=== PATIENT | female | born 1955 | race Two or more races ===

== ENCOUNTER 2019-02-16 09:55 | Inpatient (IN) | payer MEDICAID ==
[~2019-02-16] VITALS: Ht 152.4 cm; Wt 81.6 kg
[2019-02-16] MEDS ORDERED: NKM (10:11)
--- NOTE | 2019-02-16 10:11 | NUR ---
ED Nurse Note: Pt came into the ER w/ complaints of left knee pain x 2 weeks. Pt denies injury. Noted ot be swollen in the area. Pt is complaining of 10/10 pain. Radiating ot the back of the knee. No redness noted. Pt takes advil to alleviate the pain. Pt unable to stand on the left leg. Pt noted to have tenderness in the area. A + O x4. Skin warm to touch.
[2019-02-16 10:13] VITALS: BP 168/62
[2019-02-16] MEDS ORDERED: Ketorolac 30mg Inj IV ONE (10:15)
--- NOTE | 2019-02-16 10:17 | Emergency Room Report ---
History of Present Illness General Chief Complaint: Pain Source: Patient, Family Member Present Illness HPI Patient presents with one week of increasing left knee and lower leg pain. She denies any trauma. She's never had this problem before. Is also some swelling in the knee. She denies any fevers or chills. She is taking Advil and it is helped somewhat. Starting yesterday the pain increased severely. It's now 10/ 10, aching and pressure. It radiates somewhat down into the calf area. She denies any swelling of the ankle. There is no chest pain, hemoptysis, palpitations or dyspnea. No dizziness or weakness. The patient denies major medical problems. Allergies: Coded Allergies: No Known Allergies (Unverified , 02/16/19) Patient History Past Medical History: see triage record Social History: Denies: smoking, alcohol use, drug use Social History Narrative with family Now: No Reviewed Nursing Documentation: PMH: Agreed; PSxH: Agreed Nursing Documentation-PMH Past Medical History: No Stated History Review of Systems All Other Systems: negative except mentioned in HPI Physical Exam Vital Signs Date Time Temp Pulse Resp B/P (MAP) Pulse Ox O2 Delivery O2 Flow Rate FiO2 02/16/19 10:05 97.2 58 18 162/62 100 Room Air Sp02 EP Interpretation: reviewed, normal General Appearance: alert, GCS 15, mild distress - with attempt to ambulate and pain in knee Head: normocephalic Eyes: bilateral eye normal inspection, bilateral eye PERRL, bilateral eye EOMI ENT: moist mucus membranes Neck: supple Respiratory: lungs clear, normal breath sounds Cardiovascular #1: no edema, bradycardia Cardiovascular #2: 2+ radial (R), 2+ dorsalis pedis (L) Gastrointestinal: normal inspection, normal bowel sounds, non tender, no mass, non-distended Genitourinary: no CVA tenderness Musculoskeletal: back normal, swelling - Left knee, tender - Left knee and posterior calf Neurologic: alert, oriented x3, grossly normal Psychiatric: anxious - With pain Skin: normal inspection, warm/dry, other - Venous disease Medical Decision Making Diagnostic Impression: Primary Impression: Bradycardia Additional Impressions: Hypertension Qualified Codes: I10 - Essential (primary) hypertension Hyperglycemia Left knee pain Qualified Codes: M25.562 - Pain in left knee ER Course Patient presents with left knee pain and calf pain. Differential includes gout , degenerative arthritis, DVT amongst others. Evaluation will be with EKG, chest x-ray, knee x-ray, venous Doppler and labs. The patient will be treated with a dose of Toradol. EKG with bradycardia rate of [address]-T wave changes. Chest x- ray with pulmonary hypertension possible early congestive heart failure. Knee with effusion and minimal degenerative joint disease. White count normal, CMP normal except for elevated glucose. Urinalysis uric acid normal. Elevated BNP. Bradycardia noted and tolerated well. Blood pressure treated with clonidine as concern of giving beta blockers or calcium channel blockers in the face of bradycardia. Blood pressure still high. Hydralazine 1 dose given. Blood pressure improved. Patient tolerating bradycardia without difficulty. Patient needs cardiac evaluation and possibly pacemaker. Thyroid function tests which was added is normal. The pain is improved with Toradol. No evidence of infective etiology in knee. Admitted telemetry Dr. Rhodes Laboratory Tests Test 02/16/19 10:20 02/16/19 11:41 White Blood Count 5.8 K/UL (4.8-10.8) Red Blood Count 3.95 M/UL (4.20-5.40) L Hemoglobin 12.3 G/DL (12.0-16.0) Hematocrit 35.9 % (37.0-47.0) L Mean Corpuscular Volume 91 FL (80-99) Mean Corpuscular Hemoglobin 31.0 PG (27.0-31.0) Mean Corpuscular Hemoglobin Concent 34.2 G/DL (32.0-36.0) Red Cell Distribution Width 11.2 % (11.6-14.8) L Platelet Count 141 K/UL (150-450) L Mean Platelet Volume 11.3 FL (6.5-10.1) H Neutrophils (%) (Auto) 69.5 % (45.0-75.0) Lymphocytes (%) (Auto) 20.0 % (20.0-45.0) Monocytes (%) (Auto) 7.7 % (1.0-10.0) Eosinophils (%) (Auto) 2.1 % (0.0-3.0) Basophils (%) (Auto) 0.7 % (0.0-2.0) Erythrocyte Sedimentation Rate 44 MM/HR (0-30) H Prothrombin Time 11.1 SEC (9.30-11.50) Prothrombin Time INR 1.1 (0.9-1.1) PTT 28 SEC (23-33) Urine Color Yellow Urine Appearance Clear Urine pH 5 (4.5-8.0) Urine Specific Rolfe 1.025 (1.005-1.035) Urine Protein 3+ (NEGATIVE) H Urine Glucose (UA) Negative (NEGATIVE) Urine Ketones Negative (NEGATIVE) Urine Blood Negative (NEGATIVE) Urine Nitrite Negative (NEGATIVE) Urine Bilirubin Negative (NEGATIVE) Urine Urobilinogen Normal MG/DL (0.0-1.0) Urine Leukocyte Esterase Negative (NEGATIVE) Urine RBC 0-2 /HPF (0 - 2) Urine WBC 0 /HPF (0 - 2) Urine Squamous Epithelial Cells Occasional /LPF Urine Bacteria None /HPF (NONE) Sodium Level 140 MMOL/L (136-145) Potassium Level 3.9 MMOL/L (3.5-5.1) Chloride Level 104 MMOL/L (98-107) Carbon Dioxide Level 28 MMOL/L (21-32) Anion Gap 8 mmol/L (5-15) Blood Urea Nitrogen 13 mg/dL (7-18) Creatinine 0.7 MG/DL (0.55-1.30) Estimate Glomerular Filtration Rate > 60 mL/min (>60) Glucose Level 224 MG/DL (74-106) H Uric Acid 4.8 MG/DL (2.6-7.2) Calcium Level 8.5 MG/DL (8.5-10.1) Total Bilirubin 0.3 MG/DL (0.2-1.0) Aspartate Amino Transferase (AST) 18 U/L (15-37) Alanine Aminotransferase (ALT) 19 U/L (12-78) Alkaline Phosphatase 83 U/L (46-116) Total Creatine Kinase 116 U/L (26-308) Troponin I 0.016 ng/mL (0.000-0.056) Pro-B-Type Natriuretic Peptide 587 pg/mL (0-125) H Total Protein 7.2 G/DL (6.4-8.2) Albumin 3.0 G/DL (3.4-5.0) L Globulin 4.2 g/dL Albumin/Globulin Ratio 0.7 (1.0-2.7) L Thyroid Stimulating Hormone (TSH) 0.859 uiU/mL (0.358-3.740) Magnesium Level 1.9 MG/DL (1.8-2.4) EKG Diagnostic Results Rate: bradycardiac ST Segments: no acute changes Rhythm Strip Diag. Results EP Interpretation: yes Rhythm: no PVC's, no ectopy - Bradycardia Chest X-Ray Diagnostic Results Chest X-Ray Diagnostic Results : Chest X-Ray Ordered: Yes # of Views/Limited/Complete: 1 View Indication: Other EP Interpretation: Yes Interpretation: no effusion, no pneumothorax, other - pulm HTN and cardiomegally Impression: Other Electronically Signed by: Electronically signed by Armando Gipson MD Other X-Ray Diagnostic Results Other X-Ray Diagnostic Results : X-Ray ordered: L knee # of Views/Limited Vs Complete: 3 View Indication: Pain Interpretation: no dislocation, no soft tissue swelling, no fractures, other - effusion - min DJD Impression: Other Electronically Signed by: Electronically signed by Armando Gipson MD CT/MRI/US Diagnostic Results CT/MRI/US Diagnostic Results : Imaging Test Ordered: venous US Impression No DVT Last Vital Signs Date Time Temp Pulse Resp B/P (MAP) Pulse Ox O2 Delivery O2 Flow Rate FiO2 02/16/19 17:40 59 140/70 02/16/19 15:27 Room Air 02/16/19 15:20 98.1 20 99 Status: improved Disposition: ADMITTED INPATIENT Condition: Serious Armando Gipson MD Feb 16, 2019 10:17
[2019-02-16 10:33] LABS: BASOPHILS % (AUTO) 0.7 % (0.0-2.0); EOSINOPHILS % (AUTO) 2.1 % (0.0-3.0); HEMATOCRIT 35.9 % (37.0-47.0); HEMOGLOBIN 12.3 G/DL (12.0-16.0); MEAN CORPUSCULAR VOLUME 91 FL (80-99); MONOCYTES % (AUTO) 7.7 % (1.0-10.0); NEUTROPHILS % (AUTO) 69.5 % (45.0-75.0); PLATELET COUNT 141 K/UL (150-450); RED BLOOD COUNT 3.95 M/UL (4.20-5.40); RED CELL DISTRIBUTION WIDTH 11.2 % (11.6-14.8); WHITE BLOOD COUNT 5.8 K/UL (4.8-10.8)
--- NOTE | 2019-02-16 10:33 | NUR ---
ED Nurse Note: Xray at the bedside
[2019-02-16 10:34] LABS: BILIRUBIN, URINE NEGATIVE (NEGATIVE); GLUCOSE, URINE (UA) NEGATIVE (NEGATIVE); KETONES,URINE NEGATIVE (NEGATIVE); LEUKOCYTE ESTERASE ,URINE NEGATIVE (NEGATIVE); NITRITE,URINE NEGATIVE (NEGATIVE); PH,URINE 5 (4.5-8.0); PROTEIN,URINE 3+ (NEGATIVE); UROBILINOGEN,URINE NORMAL MG/DL (0.0-1.0)
[2019-02-16 10:35] LABS: APPEARANCE,URINE CLEAR; COLOR,URINE YELLOW
[2019-02-16 10:43] LABS: INR 1.1 (0.9-1.1)
[2019-02-16 10:44] LABS: ANION GAP 8 mmol/L (5-15); BLOOD UREA NITROGEN 13 mg/dL (7-18); CALCIUM 8.5 MG/DL (8.5-10.1); CARBON DIOXIDE 28 MMOL/L (21-32); CHLORIDE 104 MMOL/L (98-107); CREATININE 0.7 MG/DL (0.55-1.30); POTASSIUM 3.9 MMOL/L (3.5-5.1); SODIUM 140 MMOL/L (136-145)
--- NOTE | 2019-02-16 11:04 | Diagnostic Imaging Report ---
Indication: Chest pain Technique: One view of the chest Comparison: none Findings: The heart is enlarged. There is equivocal minimal central pulmonary venous congestion, particularly in the suprahilar regions bilaterally. The remainder the lungs and pleural spaces are clear. Impression: Cardiomegaly Equivocal bilateral suprahilar opacities, could indicate congestive changes if real
--- NOTE | 2019-02-16 11:05 | Diagnostic Imaging Report ---
Indication: Chronic left knee pain Technique: 3 views of the left knee Comparison: None Findings: There is suggestion of a small suprapatellar effusion. No acute fractures. No dislocations. Joint spaces are preserved Impression: Possible joint effusion No acute bony trauma
--- NOTE | 2019-02-16 11:09 | NUR ---
ED Nurse Note: Notified US of order.
[2019-02-16 11:10] LABS: ALANINE AMINOTRANSFERASE 19 U/L (12-78); ALBUMIN/GLOBULIN RATIO 0.7 (1.0-2.7); ALKALINE PHOSPHATASE 83 U/L (46-116); ASPARTATE AMINO TRANSFERASE 18 U/L (15-37); BILIRUBIN,TOTAL 0.3 MG/DL (0.2-1.0); CREATINE KINASE 116 U/L (26-308)
--- NOTE | 2019-02-16 11:14 | NUR ---
ED Nurse Note: US at the bedside.
--- NOTE | 2019-02-16 11:36 | NUR ---
ED Nurse Note: Notified lab of TSH order.
[2019-02-16 12:30] VITALS: BP 202/52
--- NOTE | 2019-02-16 13:21 | Diagnostic Imaging Report ---
Indication: Left leg pain and edema Technique: Grayscale and duplex images of the left lower extremity veins Comparison: none Findings: Grayscale and duplex images demonstrate no evidence of intraluminal thrombus. Normal phasic Doppler waveforms, demonstrating normal augmentation response and no evidence of valvular insufficiency. Normal compressibility of all deep veins. Incidental note is made of a knee joint effusion Impression: Negative for evidence of left lower extremity deep venous thrombosis Incidental finding of left knee joint effusion
--- NOTE | 2019-02-16 13:21 | NUR ---
ED Nurse Note: Gave telephone report to GEOVANNA Gibbs. Admission packet pending.
[2019-02-16 14:47] VITALS: BP 159/61
--- NOTE | 2019-02-16 15:13 | NUR ---
ED Nurse Note: Transferred pt up to tele unit. No acute distress noted. Left ER w/ all belongings.
[2019-02-16 15:20] VITALS: BP 140/70
--- NOTE | 2019-02-16 15:34 | NUR ---
NURSE NOTES: received pt awake alert, no distress. no c/o pain. call light within reach. left msg for dr Rhodes for admit orders , awaiting response. per pt , no home meds. Addendum: 02/16/19 at 1535 by DEBO PEREZ RN sacral area clean and intact.
[2019-02-16] MEDS ORDERED: HYDROcodone/Acetamin 5/325 tab ORAL PRN (17:15)
--- NOTE | 2019-02-16 18:11 | NUR ---
NURSE NOTES: dr Jaffe made aware of sinus bradycardia, atenolol changed to norvasc per orders.
--- NOTE | 2019-02-16 19:12 | NUR ---
HAND-OFF: Report given to PHYLLIS AUSTIN.
--- NOTE | 2019-02-16 19:13 | NUR ---
NURSE NOTES: Got report from Sai AUSTIN. Pt in stable condition.Denies any pain. No s/s of distress noted. Pt resting in bed comfortably. Bed in low and locked position, call light within reach, bedside table within reach. Continue to monitor.
[2019-02-16 20:00] VITALS: BP 148/63
[2019-02-16] MEDS: Heparin 5000 units/ml inj SUBQ SCH (21:00)
[2019-02-16] MEDS ORDERED: HydrALAZINE 25mg tab ORAL PRN (23:30)
[2019-02-17] VITALS: BP 150/76
[2019-02-17 04:00] VITALS: BP 149/63
--- NOTE | 2019-02-17 07:05 | NUR ---
CASE MANAGEMENT:REVIEW 63 YR OLD FEMALE FROM HOME CC: LT KNEE PAIN AND SWELLING SI:BRADYCARDIA. HYPERGLYCEMIA. HTN 97.2 42 18 216/56 100% ON RA ESR+44 GLUCOSE+224 IS: IV TORADOL IV HYDRALAZINE CLONIDINE PO XRAY LT KNEE CXR : TO TELEMETRY INTERQUAL CRITERIA MET
--- NOTE | 2019-02-17 07:15 | NUR ---
HAND-OFF: Report given to Meghann AUSTIN. Endorsed plan of care.
[2019-02-17 07:31] LABS: BASOPHILS % (AUTO) 0.9 % (0.0-2.0); EOSINOPHILS % (AUTO) 2.9 % (0.0-3.0); HEMATOCRIT 35.4 % (37.0-47.0); HEMOGLOBIN 11.9 G/DL (12.0-16.0); LYMPHOCYTES % (AUTO) 27.5 % (20.0-45.0); MEAN CORPUSCULAR VOLUME 91 FL (80-99); MONOCYTES % (AUTO) 10.1 % (1.0-10.0); NEUTROPHILS % (AUTO) 58.7 % (45.0-75.0); PLATELET COUNT 131 K/UL (150-450); RED BLOOD COUNT 3.89 M/UL (4.20-5.40); RED CELL DISTRIBUTION WIDTH 11.2 % (11.6-14.8); WHITE BLOOD COUNT 5.1 K/UL (4.8-10.8)
--- NOTE | 2019-02-17 07:51 | NUR ---
NURSE NOTES: Received report from GEOVANNA Johnson. Pt is sleeping in bed. No distress noted. Bed is in lowest position, side rails up X2, and call light is within reach. Will continue to monitor.
[2019-02-17 07:58] LABS: ANION GAP 7 mmol/L (5-15); BLOOD UREA NITROGEN 11 mg/dL (7-18); CALCIUM 8.8 MG/DL (8.5-10.1); CARBON DIOXIDE 29 MMOL/L (21-32); CHLORIDE 108 MMOL/L (98-107); CREATININE 0.7 MG/DL (0.55-1.30); SODIUM 143 MMOL/L (136-145)
[2019-02-17 08:00] VITALS: BP 191/67
[2019-02-17] MEDS: Heparin 5000 units/ml inj SUBQ SCH (09:00)
[2019-02-17 09:39] VITALS: BP 191/67
[2019-02-17] MEDS ORDERED: NORVASC5 MG ORAL (10:14)
--- NOTE | 2019-02-17 11:14 | NUR ---
NURSE NOTES: Patient was discharged per MD orders. Heart monitor was removed and returned to MT. IV removed. No swelling or redness noted. Webt over belongings with the patient. All personal items are with her. Belongings list is signed and in the chart. Pt stable at time of DC
--- NOTE | 2019-02-18 02:45 | History and Physical Report ---
DATE OF ADMISSION: 02/16/2019 REASON FOR ADMISSION: Bradycardia, hypertension. HISTORY: The patient is a 63-year-old female admitted through the emergency room, the patient with pain. The patient pain. The patient also noted to have some bradycardia. The patient was seen, evaluated, and was admitted for monitoring. PAST MEDICAL HISTORY: Notable for hypertension, diabetes, and arthritis. MEDICATIONS: Reviewed. ALLERGIES: Reviewed. PHYSICAL EXAMINATION: GENERAL: A well-developed female, comfortable overall. VITAL SIGNS: blood pressure 149/63. HEENT: Negative. NECK: Supple. LUNGS: Clear. CARDIAC: Slightly bradycardic. ABDOMEN: Soft and nontender. EXTREMITIES: No edema. LABORATORY DATA: Reviewed. Platelets are 131. Chemistry is noted. Troponin is negative. IMPRESSION: Diffuse arthritis with knee pain, hypertension, hyperglycemia, mild sinus bradycardia. RECOMMENDATION: Discharged to home with resumption of home medications, monitor and likely avoid beta blockers at present and follow up with the patient's primary medical doctor for further changes and interventions. Vishal Rhodes M.D. DR: BRIDGETTE JOB#: [id number] CC:
--- NOTE | 2019-02-21 06:59 | Discharge Summary ---
Discharge Summary Discharge Summary _ DATE OF ADMISSION: 02/16/2019 DATE OF DISCHARGE: 02/17/2019 DISCHARGED BY: Dr. Rhodes [facility] HOSPITAL COURSE: Patient is a 63-year-old female, who was admitted through the emergency room. She has medical history notable for hypertension, diabetes and arthritis. She presented to ED complaining of increasing left knee and lower leg pain. There was no trauma. There were also swelling noted in the knee. She denied any fever or chills. She was taking Advil that gave partial relief. Her pain increased severely. It radiated down to the calf area. She denied any chest pain, hemoptysis., Palpitations or dyspnea. On evaluation at the ED, blood pressure was elevated to 162/62, heart rate 58. Blood work did not show any leukocytosis, hemoglobin and hematocrit were stable. Electrolytes were normal. Uric acid normal. ProBNP was 500. TSH normal. Urinalysis was negative. She was noted to be bradycardic. EKG showed sinus bradycardia with a rate of [address] to T wave changes. Chest x-ray showed pulmonary hypertension with possible early congestive heart failure. Left knee x-ray showed possible joint effusion with no acute bony trauma. Blood pressure was elevated. She was given clonidine. She was given hydralazine. She was then admitted to telemetry for evaluation of bradycardia, hypertension, hyperglycemia and left knee pain. Blood pressure was monitored. Heart rhythm was monitored. Blood pressure and heart rate improved. She was discharged home with resumption of home medications, and advised likely to avoid beta-blockers. She was advised to follow-up with patient's primary medical doctor for further changes and interventions. FINAL DIAGNOSES: Diffuse arthritis with knee pain Hypertension Hyperglycemia Mild sinus bradycardia DISPOSITION: Patient was discharged home. DISCHARGE MEDICATIONS: Refer to Discharge Medication List. DISCHARGE INSTRUCTIONS: Follow-up with PCP in a week. I have been assigned to complete a discharge summary on this account, I was not involved with the patient's management. Micaela Arvizu NP Feb 21, 2019 06:59
== END 2019-02-17 10:40 | disposition home or self-care (01) | DRG 351 ==
LOC: EMR 11:47 → 2E 12:11 → EDBEDREQ 12:22
DX: M19.90 Unspecified osteoarthritis, unspecified site (principal); I27.20 Pulmonary hypertension, unspecified; M25.562 Pain in left knee; R00.1 Bradycardia, unspecified; R73.9 Hyperglycemia, unspecified
CPT/HCPCS: 36415; 71045; 80048; 80053; 81003; 82550; 83735; 83880; 84443; 84484; 84550; 85025; 85610; 85651; 85730; 93005; 93306; 93971; 96374; 96375; 99285